=== PATIENT | male | born 1965 | race African-American/Black ===

== ENCOUNTER 2021-02-25 00:20 | Inpatient (IN) | payer OTHER ==
[2021-02-25] MEDS ORDERED: ALBUTEROL SO4 2.5/IPRATROPIUM 0.5 INH SOL 3 ML VIAL.NEB. NEB ONE ×5 (01:46→22:22)
[2021-02-25] MEDS: ALBUTEROL SO4 2.5/IPRATROPIUM 0.5 INH SOL 3 ML VIAL.NEB. NEB SCH ×7 (02:07→22:37)
[2021-02-25 02:15] LABS: HEMATOCRIT 39.4 % (35.4-49); HEMOGLOBIN 13.5 GM/dL (11.7-16.9); MCH 29.2 pg (25.7-33.7); MCHC 34.2 g/dl (32.0-35.9); MEAN CELL VOLUME 85.4 fl (80-96); MEAN PLT VOLUME 8.5 fl (7.5-11.1); PLATELET COUNT 305 10^3/uL (134-434); RBC 4.62 M/mm3 (4.00-5.60); RDW 12.7 % (11.9-15.9); WHITE BLOOD COUNT 14.6 K/mm3 (4.0-10.0)
[2021-02-25 02:35] LABS: CHLORIDE 103 mmol/L (98-107); SODIUM 134 mmol/L (136-145)
[2021-02-25 02:36] LABS: PLATELET ESTIMATE NORMAL
[2021-02-25 02:37] LABS: CALCIUM 9.5 mg/dL (8.5-10.1)
[2021-02-25 02:38] LABS: ANION GAP 6 MMOL/L (8-16); BLOOD UREA NITROGEN 16.7 mg/dL (7-18); CO2 25 mmol/L (21-32); GLUCOSE,RANDOM 134 mg/dL (74-106)
[2021-02-25 02:41] LABS: SGOT/AST 18 U/L (15-37); SGPT/ALT 19 U/L (13-61)
[2021-02-25 02:43] LABS: BILIRUBIN,TOTAL 0.3 mg/dL (0.2-1); TOT PROT 7.6 g/dl (6.4-8.2)
[2021-02-25 02:44] LABS: ALK PHOS 94 U/L (45-117)
[2021-02-25 02:46] LABS: N-TERMINAL BNP 51.5 pg/ml (5-125)
[2021-02-25] MEDS ORDERED: ENOXAPARIN NA (PORCINE) 80 MG/0.8 ML DISP.SYRIN SQ ONE ×3 (04:11→22:22)
[2021-02-25] MEDS ORDERED: AZITHROMYCIN IVPB 500 MG in DEXTROSE 5%-WATER - 250 ML IVPB ONE (04:12)
[2021-02-25] MEDS ORDERED: CEFTRIAXONE 1,000 MG in DEXTROSE 5%-WATER - 50 ML IVPB ONE (04:12)
[2021-02-25 04:16] LABS: INR 1.28 (0.83-1.09); PROTHROMBIN TIME (PATIENT) 15.8 SEC (9.7-13.0)
[2021-02-25] MEDS ORDERED: CEFTRIAXONE 1 GM/50 ML BAG ONE (04:18)
[2021-02-25 04:19] LABS: ACTIVATED PTT 29.8 SECONDS (25.2-36.5)
[2021-02-25] MEDS ORDERED: AZITHROMYCIN IVPB 500 MG/250 ML BAG IVPB ONE (04:59)
[2021-02-25] MEDS ORDERED: ALBUTEROL SO4 2.5/IPRATROPIUM 0.5 INH SOL 3 ML VIAL.NEB. NEB PRN (08:06)
[2021-02-25] MEDS ORDERED: ALBUTEROL SO4 HFA INHALER IH PRN (08:51)
[2021-02-25 09:09] LABS: ANISOCYTOSIS 1+; MACROCYTOSIS 1+
[2021-02-25] MEDS ORDERED: PT OWN MED DRAWER 7, Y5N ONE (09:38)
[2021-02-25] MEDS ORDERED: ACETAMINOPHEN 325 MG TABLET (FP) PO PRN (09:39)
[2021-02-25] MEDS ORDERED: methylPREDNISolone NA SUCC 40 MG/1 ML VIAL ONE ×2 (11:19→15:13)
[2021-02-25] MEDS: methylPREDNISolone NA SUCC 40 MG/1 ML VIAL IVPUSH SCH ×2 (11:21→15:25)
[2021-02-25] MEDS ORDERED: SODIUM CHLORIDE 1,000 ML IV SCH (13:00)
[2021-02-25] MEDS ORDERED: GABAPENTIN 100 MG CAPSULE ONE ×2 (15:13→22:22)
[2021-02-25] MEDS: GABAPENTIN 300 MG CAPSULE PO SCH ×2 (15:25→22:37)
[2021-02-25] MEDS ORDERED: oxyCODONE HCL 5 MG TABLET PO ONE (17:44)
[2021-02-25] MEDS ORDERED: oxyCODONE HCL 5 MG TABLET ONE (18:12)
[2021-02-25 20:01] LABS: HIV INTERPRETATION NEGATIVE (NEGATIVE)
[2021-02-25] MEDS: ENOXAPARIN NA (PORCINE) 80 MG/0.8 ML DISP.SYRIN SQ SCH (22:37)
[2021-02-26 01:43] LABS: URINE APPEARANCE CLEAR; URINE BILIRUBIN NEGATIVE (NEGATIVE); URINE COLOR YELLOW; URINE GLUCOSE (UA) NEGATIVE (NEGATIVE); URINE KETONE NEGATIVE (NEGATIVE); URINE LEUK ESTERASE NEGATIVE (NEGATIVE); URINE NITRITE NEGATIVE (NEGATIVE); URINE PROTEIN TRACE (NEGATIVE)
[2021-02-26] MEDS: ALBUTEROL SO4 2.5/IPRATROPIUM 0.5 INH SOL 3 ML VIAL.NEB. NEB SCH ×6 (02:52→20:48)
[2021-02-26 03:37] VITALS: BMI 22.7
[2021-02-26] MEDS: GABAPENTIN 300 MG CAPSULE PO SCH ×3 (06:45→21:42)
[2021-02-26 07:07] LABS: BASO % 0.2 % (0-2.0); EOS % 0.1 % (0-4.5); HEMATOCRIT 35.6 % (35.4-49); HEMOGLOBIN 12.1 GM/dL (11.7-16.9); LYMPH % 12.4 % (8-40); MCH 29.5 pg (25.7-33.7); MEAN CELL VOLUME 86.8 fl (80-96); MEAN PLT VOLUME 9.2 fl (7.5-11.1); MONO % 9.4 % (3.8-10.2); NEUT % 77.9 % (42.8-82.8); PLATELET COUNT 263 10^3/uL (134-434); RBC 4.11 M/mm3 (4.00-5.60); RDW 12.7 % (11.9-15.9); WHITE BLOOD COUNT 18.9 K/mm3 (4.0-10.0)
[2021-02-26 07:29] LABS: CALCIUM 9.7 mg/dL (8.5-10.1)
[2021-02-26 07:30] LABS: BLOOD UREA NITROGEN 21.3 mg/dL (7-18); MAGNESIUM 2.7 mg/dL (1.8-2.4)
[2021-02-26] MEDS: NICOTINE 14 MG/24 HOURS TOPICAL PATCH TD SCH ×3 (07:32→10:27)
[2021-02-26 07:33] LABS: CREATININE 0.8 mg/dL (0.55-1.3); PHOSPHOROUS 3.4 mg/dL (2.5-4.9)
[2021-02-26 08:03] LABS: INR 1.18 (0.83-1.09); PROTHROMBIN TIME (PATIENT) 14.5 SEC (9.7-13.0)
[2021-02-26] MEDS ORDERED: PT OWN MED DRAWER 7, Y5N ONE (09:56)
[2021-02-26] MEDS ORDERED: AZITHROMYCIN IVPB 500 MG in DEXTROSE 5%-WATER - 250 ML IVPB SCH (10:00)
[2021-02-26] MEDS ORDERED: CEFTRIAXONE 1 GM in DEXTROSE 5%-WATER - 50 ML IVPB SCH ×2 (10:00→10:06)
[2021-02-26] MEDS ORDERED: AZITHROMYCIN IVPB 500 MG/250 ML BAG IVPB SCH (10:04)
[2021-02-26] MEDS: ENOXAPARIN NA (PORCINE) 80 MG/0.8 ML DISP.SYRIN SQ SCH (10:14)
[2021-02-26] MEDS: AZITHROMYCIN IVPB 500 MG/250 ML BAG IVPB SCH (10:15)
[2021-02-26] MEDS: CEFTRIAXONE 1 GM in DEXTROSE 5%-WATER - 50 ML IVPB SCH (10:50)
[2021-02-26] MEDS ORDERED: DEXTROSE 5%-WATER - 50 ML IVPB ONE (11:00)
[2021-02-26] MEDS ORDERED: cefTRIAXone SODIUM 1 GM VIAL ONE (11:00)
[2021-02-26] MEDS ORDERED: oxyCODONE HCL 5 MG TABLET PO ONE (13:00)
[2021-02-26] MEDS: guaiFENesin/CODEINE 5 ML UNIT-DOSE CUPS PO PRN (17:09)
[2021-02-26] MEDS ORDERED: MORPHINE SULFATE 2 MG/ML VIAL IVPUSH PRN (17:20)
[2021-02-26] MEDS: oxyCODONE HCL 5 MG TABLET PO PRN (21:47)
[2021-02-26] MEDS ORDERED: ENOXAPARIN NA (PORCINE) 80 MG/0.8 ML DISP.SYRIN SQ ONE (22:00)
[2021-02-27] MEDS: ALBUTEROL SO4 2.5/IPRATROPIUM 0.5 INH SOL 3 ML VIAL.NEB. NEB SCH ×6 (00:04→20:35)
[2021-02-27] MEDS: oxyCODONE HCL 5 MG TABLET PO PRN ×4 (02:29→23:05)
[2021-02-27] MEDS: guaiFENesin/CODEINE 5 ML UNIT-DOSE CUPS PO PRN (03:11)
[2021-02-27] MEDS: GABAPENTIN 300 MG CAPSULE PO SCH ×3 (06:34→23:05)
[2021-02-27] MEDS ORDERED: guaiFENesin/CODEINE 5 ML UNIT-DOSE CUPS PO PRN (07:52)
[2021-02-27] MEDS ORDERED: DEXTROSE 5%-WATER - 50 ML IVPB ONE (09:09)
[2021-02-27] MEDS ORDERED: cefTRIAXone SODIUM 1 GM VIAL ONE (09:09)
[2021-02-27] MEDS: NICOTINE 14 MG/24 HOURS TOPICAL PATCH TD SCH ×2 (09:19→09:27)
[2021-02-27] MEDS: APIXABAN 5 MG TABLET PO SCH ×2 (09:19→23:05)
[2021-02-27] MEDS: CEFTRIAXONE 1 GM in DEXTROSE 5%-WATER - 50 ML IVPB SCH (09:20)
[2021-02-27] MEDS: AZITHROMYCIN IVPB 500 MG/250 ML BAG IVPB SCH (09:20)
[2021-02-27] MEDS ORDERED: morphine SULFATE 4 MG/ML VIAL IVPUSH PRN (09:49)
[2021-02-27] MEDS: BUDESONIDE/FORMETEROL FUMARATE 160/4.5 mcg INHALER IH SCH ×2 (13:28→23:04)
[2021-02-28] MEDS: ALBUTEROL SO4 2.5/IPRATROPIUM 0.5 INH SOL 3 ML VIAL.NEB. NEB SCH ×6 (04:00→20:05)
[2021-02-28] MEDS: oxyCODONE HCL 5 MG TABLET PO PRN ×2 (06:35→21:09)
[2021-02-28] MEDS: GABAPENTIN 300 MG CAPSULE PO SCH ×3 (06:35→21:09)
[2021-02-28] MEDS ORDERED: DEXTROSE 5%-WATER - 50 ML IVPB ONE (08:53)
[2021-02-28] MEDS ORDERED: cefTRIAXone SODIUM 1 GM VIAL ONE (08:53)
[2021-02-28] MEDS: CEFTRIAXONE 1 GM in DEXTROSE 5%-WATER - 50 ML IVPB SCH (10:04)
[2021-02-28] MEDS: AZITHROMYCIN IVPB 500 MG/250 ML BAG IVPB SCH (10:04)
[2021-02-28] MEDS: NICOTINE 14 MG/24 HOURS TOPICAL PATCH TD SCH (10:05)
[2021-02-28] MEDS: APIXABAN 5 MG TABLET PO SCH ×2 (10:05→21:10)
[2021-02-28] MEDS: BUDESONIDE/FORMETEROL FUMARATE 160/4.5 mcg INHALER IH SCH ×2 (10:05→21:10)
[2021-02-28] MEDS: guaiFENesin/CODEINE 5 ML UNIT-DOSE CUPS PO PRN ×2 (11:26→18:06)
[2021-02-28 11:39] LABS: HEMATOCRIT 37.8 % (35.4-49); MCHC 34.4 g/dl (32.0-35.9); MEAN CELL VOLUME 87.2 fl (80-96); MEAN PLT VOLUME 8.2 fl (7.5-11.1); PLATELET COUNT 360 10^3/uL (134-434); RBC 4.33 M/mm3 (4.00-5.60); RDW 12.9 % (11.9-15.9); WHITE BLOOD COUNT 9.2 K/mm3 (4.0-10.0)
[2021-02-28 11:54] LABS: CALCIUM 9.4 mg/dL (8.5-10.1)
[2021-02-28 11:55] LABS: BLOOD UREA NITROGEN 10.6 mg/dL (7-18); MAGNESIUM 2.3 mg/dL (1.8-2.4)
[2021-02-28 11:58] LABS: CREATININE 0.9 mg/dL (0.55-1.3); PHOSPHOROUS 2.3 mg/dL (2.5-4.9)
[2021-03-01] MEDS: ALBUTEROL SO4 2.5/IPRATROPIUM 0.5 INH SOL 3 ML VIAL.NEB. NEB SCH ×6 (00:04→19:54)
[2021-03-01] MEDS: GABAPENTIN 300 MG CAPSULE PO SCH ×3 (06:42→22:07)
[2021-03-01] MEDS: oxyCODONE HCL 5 MG TABLET PO PRN (06:42)
[2021-03-01] MEDS: guaiFENesin/CODEINE 5 ML UNIT-DOSE CUPS PO PRN (06:42)
[2021-03-01 07:28] LABS: HEMATOCRIT 37.4 % (35.4-49); HEMOGLOBIN 12.6 GM/dL (11.7-16.9); MCH 29.1 pg (25.7-33.7); MCHC 33.8 g/dl (32.0-35.9); MEAN PLT VOLUME 7.7 fl (7.5-11.1); PLATELET COUNT 348 10^3/uL (134-434); RBC 4.34 M/mm3 (4.00-5.60); RDW 13.1 % (11.9-15.9); WHITE BLOOD COUNT 10.2 K/mm3 (4.0-10.0)
[2021-03-01 07:54] LABS: BLOOD UREA NITROGEN 12.3 mg/dL (7-18); CALCIUM 9.4 mg/dL (8.5-10.1); MAGNESIUM 2.3 mg/dL (1.8-2.4)
[2021-03-01 07:57] LABS: CREATININE 0.9 mg/dL (0.55-1.3)
[2021-03-01 07:58] LABS: PHOSPHOROUS 2.9 mg/dL (2.5-4.9)
[2021-03-01] MEDS ORDERED: PT OWN MED DRAWER 7, Y5N ONE (09:16)
[2021-03-01] MEDS ORDERED: cefTRIAXone SODIUM 1 GM VIAL ONE (09:17)
[2021-03-01] MEDS ORDERED: DEXTROSE 5%-WATER - 50 ML IVPB ONE (09:17)
[2021-03-01] MEDS: CEFTRIAXONE 1 GM in DEXTROSE 5%-WATER - 50 ML IVPB SCH (09:20)
[2021-03-01] MEDS: NICOTINE 14 MG/24 HOURS TOPICAL PATCH TD SCH (09:21)
[2021-03-01] MEDS: APIXABAN 5 MG TABLET PO SCH ×2 (09:21→22:07)
[2021-03-01 09:23] LABS: ANISOCYTOSIS 0; MACROCYTOSIS 0; PLATELET ESTIMATE NORMAL
[2021-03-01] MEDS: BUDESONIDE/FORMETEROL FUMARATE 160/4.5 mcg INHALER IH SCH ×2 (09:23→22:08)
[2021-03-01] MEDS: AZITHROMYCIN IVPB 500 MG/250 ML BAG IVPB SCH (09:24)
[2021-03-01] MEDS ORDERED: ACETAMINOPHEN 325 MG TABLET (FP) PO PRN ×2 (19:26→19:27)
[2021-03-01] MEDS ORDERED: oxyCODONE HCL 5 MG TABLET PO PRN (19:26)
[2021-03-01] MEDS ORDERED: ALBUTEROL SO4 HFA INHALER IH PRN (19:26)
[2021-03-01] MEDS ORDERED: guaiFENesin/CODEINE 5 ML UNIT-DOSE CUPS PO PRN (19:26)
[2021-03-02] MEDS: ALBUTEROL SO4 2.5/IPRATROPIUM 0.5 INH SOL 3 ML VIAL.NEB. NEB SCH ×6 (00:42→20:22)
[2021-03-02] MEDS: GABAPENTIN 300 MG CAPSULE PO SCH ×3 (05:40→21:58)
[2021-03-02 09:47] LABS: HEMATOCRIT 37.8 % (35.4-49); HEMOGLOBIN 12.8 GM/dL (11.7-16.9); MCH 29.8 pg (25.7-33.7); MCHC 33.7 g/dl (32.0-35.9); MEAN CELL VOLUME 88.5 fl (80-96); PLATELET COUNT 381 10^3/uL (134-434); RBC 4.27 M/mm3 (4.00-5.60)
[2021-03-02] MEDS ORDERED: DEXTROSE 5%-WATER - 50 ML IVPB ONE (09:51)
[2021-03-02] MEDS ORDERED: cefTRIAXone SODIUM 1 GM VIAL ONE (09:51)
[2021-03-02] MEDS: CEFTRIAXONE 1 GM in DEXTROSE 5%-WATER - 50 ML IVPB SCH (10:00)
[2021-03-02] MEDS: AZITHROMYCIN IVPB 500 MG/250 ML BAG IVPB SCH (10:01)
[2021-03-02] MEDS: NICOTINE 14 MG/24 HOURS TOPICAL PATCH TD SCH ×2 (10:05→10:35)
[2021-03-02] MEDS: BUDESONIDE/FORMETEROL FUMARATE 160/4.5 mcg INHALER IH SCH ×2 (10:05→22:00)
[2021-03-02] MEDS: APIXABAN 5 MG TABLET PO SCH ×2 (10:05→21:58)
[2021-03-02 10:07] LABS: CALCIUM 9.5 mg/dL (8.5-10.1)
[2021-03-02 10:08] LABS: BLOOD UREA NITROGEN 13.1 mg/dL (7-18)
[2021-03-02 10:11] LABS: CREATININE 0.8 mg/dL (0.55-1.3); MAGNESIUM 2.3 mg/dL (1.8-2.4)
[2021-03-02 12:55] LABS: ANISOCYTOSIS 1+; MACROCYTOSIS 0; PLATELET ESTIMATE NORMAL
[2021-03-02] MEDS: methylPREDNISolone NA SUCC 40 MG/1 ML VIAL IVPUSH SCH ×2 (13:55→17:27)
[2021-03-03] MEDS: ALBUTEROL SO4 2.5/IPRATROPIUM 0.5 INH SOL 3 ML VIAL.NEB. NEB SCH ×6 (00:05→16:06)
[2021-03-03] MEDS: methylPREDNISolone NA SUCC 40 MG/1 ML VIAL IVPUSH SCH ×3 (01:11→09:37)
[2021-03-03] MEDS: GABAPENTIN 300 MG CAPSULE PO SCH ×2 (05:34→13:34)
[2021-03-03 07:45] LABS: HEMATOCRIT 39.3 % (35.4-49); HEMOGLOBIN 13.3 GM/dL (11.7-16.9); MCH 29.3 pg (25.7-33.7); MCHC 33.9 g/dl (32.0-35.9); MEAN CELL VOLUME 86.3 fl (80-96); MEAN PLT VOLUME 7.9 fl (7.5-11.1); PLATELET COUNT 409 10^3/uL (134-434); RBC 4.55 M/mm3 (4.00-5.60); RDW 13.2 % (11.9-15.9); WHITE BLOOD COUNT 22.1 K/mm3 (4.0-10.0)
[2021-03-03 08:24] LABS: BLOOD UREA NITROGEN 15.5 mg/dL (7-18); CALCIUM 10.2 mg/dL (8.5-10.1)
[2021-03-03 08:28] LABS: CREATININE 0.9 mg/dL (0.55-1.3)
[2021-03-03] MEDS ORDERED: DEXTROSE 5%-WATER - 50 ML IVPB ONE (09:00)
[2021-03-03] MEDS ORDERED: cefTRIAXone SODIUM 1 GM VIAL ONE (09:00)
[2021-03-03] MEDS: AZITHROMYCIN IVPB 500 MG/250 ML BAG IVPB SCH (09:20)
[2021-03-03] MEDS: NICOTINE 14 MG/24 HOURS TOPICAL PATCH TD SCH (09:21)
[2021-03-03] MEDS: APIXABAN 5 MG TABLET PO SCH (09:21)
[2021-03-03] MEDS: CEFTRIAXONE 1 GM in DEXTROSE 5%-WATER - 50 ML IVPB SCH (09:21)
[2021-03-03 09:33] LABS: ANISOCYTOSIS 1+; MACROCYTOSIS 0; PLATELET ESTIMATE NORMAL; TARGET CELLS 1+; TEAR DROP CELLS 1+
[2021-03-03] MEDS: BUDESONIDE/FORMETEROL FUMARATE 160/4.5 mcg INHALER IH SCH (11:11)
[2021-03-03 14:13] VITALS: BP 118/70; PULSE 78; TEMP 97.8
== END 2021-03-03 17:42 | disposition home or self-care (01) | DRG 175 ==
LOC: JER 00:20 → JERBED 04:13 → J4S 02-26 02:16 → J8W 03-01 18:53
PROVIDERS: ADMIT Internal Medicine; ATTEND Internal Medicine
DX: I26.99 Other pulmonary embolism without acute cor pulmonale (principal); J18.9 Pneumonia, unspecified organism; E87.1 Hypo-osmolality and hyponatremia; J45.901 Unspecified asthma with (acute) exacerbation; J47.1 Bronchiectasis with (acute) exacerbation; E83.52 Hypercalcemia; G62.9 Polyneuropathy, unspecified; F17.200 Nicotine dependence, unspecified, uncomplicated; D72.829 Elevated white blood cell count, unspecified
CPT/HCPCS: 36415; 71275-TC; 80048; 80053; 80061; 81003; 82550; 83735; 83880; 83970; 84100; 84484; 85025; 85027; 85610; 85730; 86480; 87040; 87070; 87086; 87116; 87205; 87206; 87389; 87556; 87899; 93005; 93010; 93306-TC; 94640; 99285-25; C9803; U0003; U0005

== ENCOUNTER 2021-11-03 15:58 | Emergency (ER) | payer OTHER ==
[2021-11-03 16:11] VITALS: BP 130/87; PULSE 76; TEMP 99.1; BMI 23.3
[2021-11-03] MEDS ORDERED: ACETAMINOPHEN 325 MG TABLET (FP) PO ONE (19:33)
[2021-11-03] MEDS ORDERED: ACETAMINOPHEN 500 MG TABLET (FP) ONE (19:38)
[2021-11-03] MEDS ORDERED: VANCOMYCIN 1 GM in D5W (PRE-DOCKED) 1,000 MG/250 ML IVPB ONE (20:26)
[2021-11-03 20:27] LABS: BASO % 0.3 % (0-2.0); HEMATOCRIT 40.8 % (35.4-49); HEMOGLOBIN 13.7 GM/dL (11.7-16.9); LYMPH % 19.4 % (8-40); MCH 29.2 pg (25.7-33.7); MCHC 33.5 g/dl (32.0-35.9); MEAN CELL VOLUME 87.2 fl (80-96); MEAN PLT VOLUME 9.1 fl (7.5-11.1); MONO % 9.1 % (3.8-10.2); NEUT % 65.2 % (42.8-82.8); PLATELET COUNT 294 10^3/uL (134-434); RBC 4.67 M/mm3 (4.00-5.60); RDW 12.7 % (11.9-15.9); WHITE BLOOD COUNT 11.4 K/mm3 (4.0-10.0)
[2021-11-03] MEDS ORDERED: PIPERACILLIN/TAZOB 3.375 GM 3.375 GM in DEXTROSE 5%-WATER - 50 ML IVPB ONE (20:27)
[2021-11-03 20:49] LABS: CALCIUM 10.1 mg/dL (8.5-10.1)
[2021-11-03 20:50] LABS: ALBUMIN 3.2 g/dl (3.4-5.0); BLOOD UREA NITROGEN 16.7 mg/dL (7-18)
[2021-11-03 20:53] LABS: CREATININE 1.1 mg/dL (0.55-1.3)
[2021-11-03 20:54] LABS: BILIRUBIN,TOTAL 0.3 mg/dL (0.2-1); TOT PROT 7.4 g/dl (6.4-8.2)
[2021-11-03] MEDS ORDERED: VANCOMYCIN 1 GRAM (PRE-DOCKED) 1,000 MG/250 ML BAG IVPB ONE (21:46)
[2021-11-03] MEDS ORDERED: PIPERACILLIN/TAZOB 3.375 GM 3.375 GM/50 ML BAG IVPB ONE (21:46)
== END 2021-11-04 02:10 | disposition left against medical advice (07) ==
LOC: JER 15:58
PROC: 3E033GC Introduction of Other Therapeutic Substance into Peripheral Vein, Percutaneous Approach (ICD-10-PCS; principal; 2021-11-03)
DX: J01.10 Acute frontal sinusitis, unspecified (principal)
CPT/HCPCS: 36415; 70542-TC; 70552-TC; 71046-TC-FY; 80053; 85025; 99285-25; A9579; C9803-CS; U0003; U0005

== ENCOUNTER 2022-10-19 14:07 | Emergency (ER) | payer OTHER ==
[2022-10-19 14:18] VITALS: BP 140/69; PULSE 60; RESP 20; TEMP 98; BMI 27.3
== END 2022-10-19 16:58 | disposition home or self-care (01) ==
LOC: JERFT 14:07
DX: M54.2 Cervicalgia (principal); M25.552 Pain in left hip; M79.672 Pain in left foot; R51.9 Headache, unspecified; V28.09XA Other motorcycle driver injured in noncollision transport accident in nontraffic accident, initial encounter; Y93.55 Activity, bike riding
CPT/HCPCS: 70450-TC; 71046-TC-FY; 72125-TC; 72170-TC-FY; 73502-TC-LT-FY; 73630-TC-LT; 99284-25

== ENCOUNTER 2022-10-26 10:33 | Inpatient (IN) | payer OTHER ==
[2022-10-26 10:50] VITALS: BMI 26.7
[2022-10-26] MEDS ORDERED: methylPREDNISolone NA SUCC 125 MG/2 ML VIAL ONE ×2 (10:53→11:08)
[2022-10-26] MEDS ORDERED: methylPREDNISolone NA SUCC 125 MG/2 ML VIAL IVPB ONE (10:53)
[2022-10-26] MEDS ORDERED: MAGNESIUM SULFATE IN WATER 2 GM/50 ML IVPB IVPB ONE (10:53)
[2022-10-26] MEDS ORDERED: MAGNESIUM SULF 50% (8.12 MEQ/2 ML-1 GM VIAL) IVPB ONE (10:53)
[2022-10-26] MEDS: ALBUTEROL SO4 2.5/IPRATROPIUM 0.5 INH SOL 3 ML VIAL.NEB. NEB SCH ×2 (11:34→20:26)
[2022-10-26 11:50] LABS: INR 1.2 (0.83-1.09); PROTHROMBIN TIME (PATIENT) 13.9 SEC (9.7-13.0)
[2022-10-26 11:51] LABS: HEMATOCRIT 37.4 % (35.4-49); HEMOGLOBIN 12.8 GM/dL (11.7-16.9); MCH 30.4 pg (25.7-33.7); MCHC 34.1 g/dl (32.0-35.9); MEAN CELL VOLUME 89.1 fl (80-96); MEAN PLT VOLUME 9.2 fl (7.5-11.1); PLATELET COUNT 242 10^3/uL (134-434); RDW 14.3 % (11.9-15.9); WHITE BLOOD COUNT 12.1 K/mm3 (4.0-10.0)
[2022-10-26 11:53] LABS: ACTIVATED PTT 30.1 SECONDS (25.2-36.5)
[2022-10-26 12:12] LABS: ALBUMIN 3.3 g/dl (3.4-5.0); BLOOD UREA NITROGEN 8.4 mg/dL (7-18); CALCIUM 9.8 mg/dL (8.5-10.1); MAGNESIUM 2.1 mg/dL (1.8-2.4)
[2022-10-26 12:19] LABS: BILIRUBIN,TOTAL 0.4 mg/dL (0.2-1)
[2022-10-26 12:26] LABS: VENOUS O2 SATURATION 79.3 % (70-80); VENOUS PCO2 56.1 mmHg (38-52); VENOUS PH 7.292 (7.310-7.410)
[2022-10-26] MEDS ORDERED: ALBUTEROL SO4 0.083% IH SOL 2.5 MG/3 ML VIAL.NEB. NEB PRN ×2 (14:13→16:11)
[2022-10-26] MEDS ORDERED: PATIENT'S OWN MEDICATION (NON-FORMULARY) (Oxycodone Hcl [Oxycontin] 30 MG Tab.Er.12h) PO PRN (16:19)
[2022-10-26] MEDS ORDERED: GABAPENTIN 300 MG CAPSULE PO PRN (16:19)
[2022-10-26] MEDS ORDERED: AZITHROMYCIN IVPB 500 MG in DEXTROSE 5%-WATER - 250 ML IVPB SCH (16:30)
[2022-10-26] MEDS ORDERED: ALBUTEROL SO4 0.083% IH SOL 2.5 MG/3 ML VIAL.NEB. NEB ONE (16:50)
[2022-10-26] MEDS ORDERED: AZITHROMYCIN IVPB 500 MG/250 ML BAG IVPB ONE (16:50)
[2022-10-26] MEDS: morphine SO4 SUSTAINED ACTING 30 MG TABLET.SA PO PRN (20:32)
[2022-10-26] MEDS ORDERED: BUDESONIDE/FORMETEROL FUMARATE 160/4.5 mcg INHALER IH SCH (22:00)
[2022-10-26] MEDS ORDERED: DEXAMETHASONE SOD PHOSPHATE 10 MG/1 ML VIAL IVPUSH SCH (22:00)
[2022-10-26] MEDS ORDERED: MOMETASONE FUROATE 220 MCG/IH INHALER IH SCH (22:00)
[2022-10-26] MEDS ORDERED: MONTELUKAST NA 10 MG TABLET PO SCH (22:00)
[2022-10-27] MEDS: ALBUTEROL SO4 2.5/IPRATROPIUM 0.5 INH SOL 3 ML VIAL.NEB. NEB SCH ×3 (01:24→07:39)
[2022-10-27 06:00] VITALS: BP 146/80; PULSE 78; TEMP 97.8
[2022-10-27] MEDS: morphine SO4 SUSTAINED ACTING 30 MG TABLET.SA PO PRN (06:40)
[2022-10-27 07:23] LABS: HEMATOCRIT 36.6 % (35.4-49); HEMOGLOBIN 12.6 GM/dL (11.7-16.9); MCH 30.4 pg (25.7-33.7); MCHC 34.5 g/dl (32.0-35.9); MEAN CELL VOLUME 88.2 fl (80-96); PLATELET COUNT 244 10^3/uL (134-434); RBC 4.15 M/mm3 (4.00-5.60); RDW 14.2 % (11.9-15.9); WHITE BLOOD COUNT 17.8 K/mm3 (4.0-10.0)
[2022-10-27] MEDS ORDERED: morphine SO4 SUSTAINED ACTING 30 MG TABLET.SA PO PRN (07:45)
[2022-10-27 07:48] LABS: POTASSIUM 4.6 mmol/L (3.5-5.1)
[2022-10-27] MEDS ORDERED: PATIENT'S OWN MEDICATION (NON-FORMULARY) (Oxycodone Hcl [Oxycontin] 30 MG Tab.Er.12h) PO PRN (07:49)
[2022-10-27 07:55] LABS: CALCIUM 10.1 mg/dL (8.5-10.1)
[2022-10-27 07:56] LABS: ALBUMIN 3.2 g/dl (3.4-5.0); BLOOD UREA NITROGEN 15.9 mg/dL (7-18); MAGNESIUM 2.4 mg/dL (1.8-2.4)
[2022-10-27 07:59] LABS: CREATININE 0.9 mg/dL (0.55-1.3); PHOSPHOROUS 2.6 mg/dL (2.5-4.9)
[2022-10-27 08:01] LABS: BILIRUBIN,TOTAL 0.5 mg/dL (0.2-1); TOT PROT 6.9 g/dl (6.4-8.2)
[2022-10-27] MEDS ORDERED: morphine SO4 SUSTAINED ACTING 30 MG TABLET.SA PO SCH ×2 (09:00→14:00)
[2022-10-27 09:13] LABS: ANISOCYTOSIS 0; MACROCYTOSIS 0
[2022-10-27] MEDS ORDERED: BUDESONIDE/FORMETEROL FUMARATE 160/4.5 mcg INHALER IH SCH (10:00)
[2022-10-27] MEDS ORDERED: predniSONE 20 MG TABLET (UD) PO SCH (10:00)
[2022-10-27] MEDS ORDERED: ENOXAPARIN NA (PORCINE) 40 MG/0.4 ML DISP.SYRIN SQ SCH (10:00)
[2022-10-27] MEDS ORDERED: AZITHROMYCIN IVPB 500 MG/250 ML BAG IVPB SCH (10:15)
[2022-10-27] MEDS ORDERED: GABAPENTIN 300 MG CAPSULE PO PRN (10:19)
[2022-10-27] MEDS ORDERED: ALBUTEROL SO4 0.083% IH SOL 2.5 MG/3 ML VIAL.NEB. NEB PRN (10:19)
[2022-10-27] MEDS ORDERED: methylPREDNISolone NA SUCC 40 MG/1 ML VIAL IVPUSH SCH (10:30)
[2022-10-27] MEDS ORDERED: ALBUTEROL SO4 2.5/IPRATROPIUM 0.5 INH SOL 3 ML VIAL.NEB. NEB SCH (12:00)
[2022-10-27 12:10] VITALS: RESP 19
[2022-10-27] MEDS ORDERED: MOMETASONE FUROATE 220 MCG/IH INHALER IH SCH (22:00)
[2022-10-27] MEDS ORDERED: MONTELUKAST NA 10 MG TABLET PO SCH (22:00)
[2022-10-28] MEDS ORDERED: ENOXAPARIN NA (PORCINE) 40 MG/0.4 ML DISP.SYRIN SQ SCH (10:00)
[2022-10-28] MEDS ORDERED: AZITHROMYCIN IVPB 500 MG/250 ML BAG IVPB SCH (10:00)
== END 2022-10-27 14:15 | disposition left against medical advice (07) | DRG 203 ==
LOC: JER 10:33 → JERBED 15:03 → J7W 19:39
PROVIDERS: ADMIT Internal Medicine
DX: J45.51 Severe persistent asthma with (acute) exacerbation (principal); G62.9 Polyneuropathy, unspecified; F17.210 Nicotine dependence, cigarettes, uncomplicated; R06.03 Acute respiratory distress
CPT/HCPCS: 0241U-QW; 36415; 71045-TC-FY; 71275-TC; 80053; 82803; 83735; 84100; 84484; 85025; 85027; 85610; 85730; 93005; 93010; 94640; 94660; 99285-25; J1100; Q9967

== ENCOUNTER 2024-08-20 17:30 | Emergency (ER) | payer OTHER ==
[2024-08-20 18:07] VITALS: TEMP 98.5; BMI 26.7
[2024-08-20] MEDS ORDERED: ALBUTEROL SO4 2.5/IPRATROPIUM 0.5 INH SOL 3 ML VIAL.NEB. NEB ONE (19:37)
[2024-08-20] MEDS ORDERED: methylPREDNISolone NA SUCC 125 MG/2 ML VIAL ONE (19:38)
[2024-08-20] MEDS: ALBUTEROL SO4 2.5/IPRATROPIUM 0.5 INH SOL 3 ML VIAL.NEB. NEB ONE (19:54)
[2024-08-20] MEDS: methylPREDNISolone NA SUCC 125 MG/2 ML VIAL IVPB ONE (19:54)
[2024-08-20 20:10] LABS: ABSOLUTE IMMATURE GRANULOCYTES 0.03 x10^3/uL (0.0-0.031); BASOPHILS # 0.07 x10^3/uL (0.01-0.08); EOSINOPHIL % 8.7 % (0.8-7.0); HEMATOCRIT 40.4 % (40.1-51.0); HEMOGLOBIN 13.7 g/dL (13.7-17.5); MCHC 33.9 g/dl (32.3-36.5); MEAN CELL VOLUME 83.8 fl (79.0-92.2); MEAN PLT VOLUME 10.6 fl (9.4-12.4); MONOCYTE # 0.72 x10^3/uL (0.30-0.82); MONOCYTE % 5.7 % (5.3-12.2); PLATELET COUNT # 265 x10^3/uL (163-337); RDW 12.9 % (12.2-16.4)
[2024-08-20 20:26] LABS: POTASSIUM 4.3 mmol/L (3.5-5.1)
[2024-08-20 20:27] LABS: CALCIUM 9.8 mg/dL (8.5-10.1)
[2024-08-20 20:28] LABS: BLOOD UREA NITROGEN 19.1 mg/dL (7-18)
[2024-08-20 21:22] LABS: HCV DIAGNOSTIC IN-HOUSE W/RFLX NON-REACTIVE (NONREACTIVE); HIV INTERPRETATION NEGATIVE (NEGATIVE)
[2024-08-20 23:23] VITALS: BP 107/76; PULSE 63; RESP 18
== END 2024-08-21 00:07 | disposition home or self-care (01) ==
LOC: JER 17:30
PROC: 3E033GC Introduction of Other Therapeutic Substance into Peripheral Vein, Percutaneous Approach (ICD-10-PCS; principal; 2024-08-20)
PROC: 3E0F7GC Introduction of Other Therapeutic Substance into Respiratory Tract, Via Natural or Artificial Opening (ICD-10-PCS; 2024-08-20)
DX: R91.8 Other nonspecific abnormal finding of lung field (principal); R06.02 Shortness of breath; R05.9 Cough, unspecified; M25.562 Pain in left knee
CPT/HCPCS: 0241U-QW; 36415; 71045-TC-FY; 71260-TC; 73562-TC-LT-FY; 80048; 84484; 85025; 85379; 86803; 87389; 93005; 93010; 99285-25; Q9967

== ENCOUNTER 2024-10-08 06:43 | Inpatient (IN) | payer OTHER ==
[2024-10-08 09:47] LABS: ABSOLUTE IMMATURE GRANULOCYTES 0.03 x10^3/uL (0.0-0.031); BASOPHILS # 0.04 x10^3/uL (0.01-0.08); EOSINOPHILS # 1.07 x10^3/uL (0.04-0.54); HEMATOCRIT 40.6 % (40.1-51.0); HEMOGLOBIN 13.8 g/dL (13.7-17.5); MEAN CELL VOLUME 85.7 fl (79.0-92.2); MEAN PLT VOLUME 9.8 fl (9.4-12.4); MONOCYTE # 0.75 x10^3/uL (0.30-0.82); MONOCYTE % 7.7 % (5.3-12.2); PLATELET COUNT 288 x10^3/uL (163-337); RDW 12.7 % (12.2-16.4)
[2024-10-08 09:52] LABS: INR 1.39 (0.83-1.09); PROTHROMBIN TIME (PATIENT) 15.3 SEC (9.7-13.0)
[2024-10-08 10:11] LABS: POTASSIUM 4.6 mmol/L (3.5-5.1)
[2024-10-08 10:13] LABS: BLOOD UREA NITROGEN 13.7 mg/dL (7-18); CALCIUM 10.6 mg/dL (8.5-10.1)
[2024-10-08 10:14] LABS: ALBUMIN 3.6 g/dl (3.4-5.0)
[2024-10-08 10:17] LABS: CREATININE 1.1 mg/dL (0.55-1.3)
[2024-10-08 10:18] LABS: BILIRUBIN,TOTAL 0.6 mg/dL (0.2-1); TOT PROT 7.4 g/dl (6.4-8.2)
[2024-10-08] MEDS: MIDAZOLAM HCL 2 MG/2 ML SINGLE DOSE VIAL IVPUSH ONE (11:45)
[2024-10-08] MEDS: MIDAZOLAM HCL 2 MG/2 ML SINGLE DOSE VIAL ONE (13:53)
[2024-10-08] MEDS ORDERED: PATIENT'S OWN MEDICATION (NON-FORMULARY) (Oxycodone Hcl [Oxycontin] 30 MG Tab.Er.12h) PO PRN (13:54)
[2024-10-08] MEDS ORDERED: ALBUTEROL SO4 HFA INHALER IH PRN (13:54)
[2024-10-08] MEDS ORDERED: morphine SO4 SUSTAINED ACTING 30 MG TABLET.SA PO PRN (13:54)
[2024-10-08] MEDS: GABAPENTIN 300 MG CAPSULE PO SCH (14:00)
[2024-10-08] MEDS ORDERED: ACETAMINOPHEN 1000 MG/100 ML BAG IVPB PRN (14:10)
[2024-10-08] MEDS: morphine CARPU-JECT 2 MG/1 ML DISP.SYRIN IVPUSH ONE (14:35)
[2024-10-08] MEDS ORDERED: HYDROmorphone HCL CARPU-JECT 2 MG/1 ML DISP.SYRIN ONE (15:15)
[2024-10-08] MEDS: HYDROmorphone HCl 2 MG/ML VIAL IVPUSH PRN (15:17)
[2024-10-08] MEDS: morphine SO4 SUSTAINED ACTING 30 MG TABLET.SA PO PRN (17:34)
[2024-10-08 19:32] VITALS: BMI 23.7
[2024-10-08] MEDS ORDERED: HYDROmorphone HCL CARPU-JECT 2 MG/1 ML DISP.SYRIN IVPUSH PRN (22:54)
[2024-10-09 07:52] LABS: ABSOLUTE IMMATURE GRANULOCYTES 0.04 x10^3/uL (0.0-0.031); BASOPHILS # 0.05 x10^3/uL (0.01-0.08); EOSINOPHIL % 6.6 % (0.8-7.0); EOSINOPHILS # 0.66 x10^3/uL (0.04-0.54); HEMATOCRIT 39.3 % (40.1-51.0); HEMOGLOBIN 13.3 g/dL (13.7-17.5); MCHC 33.8 g/dl (32.3-36.5); MEAN CELL VOLUME 85.6 fl (79.0-92.2); MEAN PLT VOLUME 10.3 fl (9.4-12.4); MONOCYTE # 0.86 x10^3/uL (0.30-0.82); MONOCYTE % 8.7 % (5.3-12.2); PLATELET COUNT 276 x10^3/uL (163-337); RDW 12.7 % (12.2-16.4)
[2024-10-09 08:30] LABS: POTASSIUM 4.7 mmol/L (3.5-5.1)
[2024-10-09 08:43] LABS: ALBUMIN 3.1 g/dl (3.4-5.0); BLOOD UREA NITROGEN 15.7 mg/dL (7-18); CREATININE 1.1 mg/dL (0.55-1.3)
[2024-10-09 08:44] LABS: BILIRUBIN,TOTAL 0.5 mg/dL (0.2-1); TOT PROT 6.8 g/dl (6.4-8.2)
[2024-10-09 08:45] LABS: CALCIUM 10.2 mg/dL (8.5-10.1)
[2024-10-09 08:46] LABS: MAGNESIUM 2.4 mg/dL (1.8-2.4); PHOSPHOROUS 3.7 mg/dL (2.5-4.9)
[2024-10-09] MEDS: ENOXAPARIN NA (PORCINE) 40 MG/0.4 ML DISP.SYRIN SQ SCH (09:21)
[2024-10-09] MEDS: FLUTICASONE/UMECLIDIN/VILANTER(100-62.5-25 TRELEGY ELLIPTA) INAHLER IH SCH (10:46)
[2024-10-09] MEDS ORDERED: ALBUTEROL SO4 HFA INHALER IH PRN (23:45)
[2024-10-09] MEDS ORDERED: HYDROmorphone HCL CARPU-JECT 2 MG/1 ML DISP.SYRIN IVPUSH PRN (23:45)
[2024-10-10] MEDS: morphine SO4 SUSTAINED ACTING 30 MG TABLET.SA PO PRN (04:14)
[2024-10-10] MEDS ORDERED: HYDROmorphone HCL CARPU-JECT 2 MG/1 ML DISP.SYRIN IVPUSH PRN (06:23)
[2024-10-10] MEDS ORDERED: ALBUTEROL SO4 HFA INHALER IH PRN (06:23)
[2024-10-10 07:41] LABS: HEMATOCRIT 38.9 % (40.1-51.0); HEMOGLOBIN 12.7 g/dL (13.7-17.5); MCHC 32.6 g/dl (32.3-36.5); MEAN PLT VOLUME 10.2 fl (9.4-12.4); PLATELET COUNT 262 x10^3/uL (163-337); RDW 12.5 % (12.2-16.4)
[2024-10-10] MEDS: GABAPENTIN 300 MG CAPSULE PO SCH ×2 (08:40→15:03)
[2024-10-10 08:42] LABS: POTASSIUM 4.5 mmol/L (3.5-5.1)
[2024-10-10 08:43] LABS: CALCIUM 10.2 mg/dL (8.5-10.1)
[2024-10-10 08:44] LABS: BLOOD UREA NITROGEN 14.5 mg/dL (7-18)
[2024-10-10 08:47] LABS: CREATININE 0.9 mg/dL (0.55-1.3)
[2024-10-10] MEDS ORDERED: morphine SO4 SUSTAINED ACTING 30 MG TABLET.SA PO PRN (09:46)
[2024-10-10] MEDS: ENOXAPARIN NA (PORCINE) 40 MG/0.4 ML DISP.SYRIN SQ SCH (09:58)
[2024-10-10] MEDS ORDERED: FLUTICASONE/UMECLIDIN/VILANTER(100-62.5-25 TRELEGY ELLIPTA) INAHLER IH SCH (10:00)
[2024-10-10] MEDS ORDERED: ENOXAPARIN NA (PORCINE) 40 MG/0.4 ML DISP.SYRIN SQ SCH (10:00)
[2024-10-10] MEDS: FLUTICASONE/UMECLIDIN/VILANTER(100-62.5-25 TRELEGY ELLIPTA) INAHLER IH SCH (11:06)
[2024-10-11 08:25] LABS: HEMOGLOBIN 12.6 g/dL (13.7-17.5); MCHC 34.1 g/dl (32.3-36.5); MEAN PLT VOLUME 10.4 fl (9.4-12.4); PLATELET COUNT 270 x10^3/uL (163-337); RDW 12.2 % (12.2-16.4)
[2024-10-11 08:45] LABS: POTASSIUM 4.3 mmol/L (3.5-5.1)
[2024-10-11 08:52] LABS: BLOOD UREA NITROGEN 18.4 mg/dL (7-18); CALCIUM 9.8 mg/dL (8.5-10.1)
[2024-10-11 08:55] LABS: BILIRUBIN,TOTAL 0.6 mg/dL (0.2-1); CREATININE 0.9 mg/dL (0.55-1.3); TOT PROT 6.8 g/dl (6.4-8.2)
[2024-10-11] MEDS: morphine SO4 SUSTAINED ACTING 30 MG TABLET.SA PO PRN (10:22)
[2024-10-11 11:30] VITALS: BP 106/58; PULSE 65; RESP 18; TEMP 98.1
== END 2024-10-11 11:17 | disposition home or self-care (01) | DRG 200 ==
LOC: JRADIR 06:43 → J2C 13:11 → J4W 16:58 → J7W 10-10 00:06
PROVIDERS: ADMIT Student in an Organized Health Care Education/Training Program; ATTEND Internal Medicine
PROC: 0W9930Z Drainage of Right Pleural Cavity with Drainage Device, Percutaneous Approach (ICD-10-PCS; principal; 2024-10-08 10:00)
PROC: 0WP9X0Z Removal of Drainage Device from Right Pleural Cavity, External Approach (ICD-10-PCS; 2024-10-10)
DX: J95.811 Postprocedural pneumothorax (principal); J95.71 Accidental puncture and laceration of a respiratory system organ or structure during a respiratory system procedure; J44.9 Chronic obstructive pulmonary disease, unspecified; R91.8 Other nonspecific abnormal finding of lung field; E83.52 Hypercalcemia; M54.2 Cervicalgia; D72.829 Elevated white blood cell count, unspecified; M54.9 Dorsalgia, unspecified; J45.30 Mild persistent asthma, uncomplicated; D64.9 Anemia, unspecified; Y83.8 Other surgical procedures as the cause of abnormal reaction of the patient, or of later complication, without mention of misadventure at the time of the procedure; Z86.718 Personal history of other venous thrombosis and embolism
CPT/HCPCS: 32408; 32550; 36415; 71045-TC-FY; 71046-TC-FY; 77012-TC; 80048; 80053; 83735; 84100; 85025; 85027; 85610; 87070; 87075; 87205; 88305-TC; 88313-TC; 88342-TC; 94010; 94760

== ENCOUNTER 2024-10-18 11:21 | Emergency (ER) | payer OTHER ==
[2024-10-18 11:32] VITALS: TEMP 98.8; BMI 24.3
[2024-10-18 12:46] LABS: ABSOLUTE IMMATURE GRANULOCYTES 0.01 x10^3/uL (0.0-0.031); BASOPHILS # 0.06 x10^3/uL (0.01-0.08); EOSINOPHIL % 15.8 % (0.8-7.0); EOSINOPHILS # 1.26 x10^3/uL (0.04-0.54); HEMATOCRIT 37.7 % (40.1-51.0); MCHC 34.5 g/dl (32.3-36.5); MEAN CELL VOLUME 84.3 fl (79.0-92.2); MEAN PLT VOLUME 10.4 fl (9.4-12.4); MONOCYTE # 0.65 x10^3/uL (0.30-0.82); MONOCYTE % 8.1 % (5.3-12.2); PLATELET COUNT 319 x10^3/uL (163-337); RDW 12.2 % (12.2-16.4)
[2024-10-18 13:11] LABS: POTASSIUM 5.9 mmol/L (3.5-5.1)
[2024-10-18 13:13] LABS: CALCIUM 10.3 mg/dL (8.5-10.1)
[2024-10-18 13:14] LABS: ALBUMIN 3.2 g/dl (3.4-5.0); BLOOD UREA NITROGEN 10.8 mg/dL (7-18)
[2024-10-18 13:18] LABS: BILIRUBIN,TOTAL 0.5 mg/dL (0.2-1)
[2024-10-18 13:19] LABS: TOT PROT 7.2 g/dl (6.4-8.2)
[2024-10-18 13:20] LABS: CREATININE 0.8 mg/dL (0.55-1.3)
[2024-10-18 14:25] VITALS: BP 111/72; PULSE 61; RESP 18
== END 2024-10-18 14:26 | disposition home or self-care (01) ==
LOC: JER 11:21
DX: R07.89 Other chest pain (principal); R00.1 Bradycardia, unspecified; R06.02 Shortness of breath
CPT/HCPCS: 36415; 71046-TC-FY; 80053; 85025; 86850; 86900; 86901; 93005; 93010; 99285-25